=== PATIENT | female | born 1965 | race Caucasian/White ===

== ENCOUNTER 2022-03-02 08:05 | Emergency (ER) | payer BC ==
[2022-03-02 08:53] VITALS: BP 138/79; PULSE 78; TEMP 98.5; BMI 32.5
== END 2022-03-02 08:55 | disposition home or self-care (01) ==
LOC: FER 08:05
PROC: 0H9T0ZZ Drainage of Right Breast, Open Approach (ICD-10-PCS; principal; 2022-03-02)
DX: N61.1 Abscess of the breast and nipple (principal)
CPT/HCPCS: 10060; 99284-25

== ENCOUNTER 2023-03-17 18:05 | Emergency (ER) | payer BC ==
[2023-03-17 18:18] VITALS: RESP 18; TEMP 98; BMI 35.2
[2023-03-17] MEDS ORDERED: LIDOCAINE HCL 1%, 10 MG/ML (50 mL VIAL) SQ ONE (18:21)
[2023-03-17] MEDS ORDERED: LIDOCAINE HCL 1%, 10 MG/ML (20ML VIAL) ONE (18:31)
[2023-03-17 19:22] VITALS: BP 157/95; PULSE 91
== END 2023-03-17 19:05 | disposition home or self-care (01) ==
LOC: FER 18:05
PROC: 0H96XZZ Drainage of Back Skin, External Approach (ICD-10-PCS; principal; 2023-03-17)
DX: L02.212 Cutaneous abscess of back [any part, except buttock and flank] (principal)
CPT/HCPCS: 99283-25